=== PATIENT | male | born 1960 | race Caucasian/White ===

== ENCOUNTER 2019-02-22 16:28 | Emergency (ER) | payer SELFPAY ==
[2019-02-22 16:55] LABS: BASOPHILS % 0.5 % (0.0-1.5); NEUTROPHILS # 2.9 # k/uL (1.4-7.7)
--- NOTE | 2019-02-22 17:05 | ED Physician Documentation ---
Chest Pain - HISTORIAN Historian: patient - HPI Stated Complaint: "my chest pain is flaring up again" Chief Complaint: Chest Pain Additional Information: Patient presents to ED with a 45 minute history of left chest pain. Patient states he was riding in his friends car going home to the [place] when he began to have left sided chest pain, sharp, 9/10, radiating into left arm, left neck with associated shortness of breath. He has a cardiac history with 3 stents (2004, 2014). 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 He took 3 nitro and ASA 325mg just prior to arrival with no improvem ent in his chest pain. He asks if he can have pain meds. Onset: minutes (45) Timing: sudden onset Duration: sudden-onset Last known Well Date: 02/22/19 Last Known Well Time: 17:00 Context: other Severity: moderate Quality: sharp Chest Pain Radiation: arms (left ), neck Chest Pain Signs/Symptoms: denies: nausea, vomiting Worsened By: nothing Relieved By: nothing - ROS CONST: none MS/LYMPH: none GI/: denies: vomiting, nausea EYES/ENT: none SKIN/ENDO: none NEURO/PSYCH: denies: headache - PAST HX DE risk factors: cardiac disease DVT/PE Risk Factors: none TAD/AAA risk factors: none Neuro deficit: CVA GI disease: none Lung disease: none Surgeries/Procedures: cardiac cath, cardiac stent Allergies/Adverse Reactions: Allergies Allergy/AdvReac Type Severity Reaction Status Date / Time albuterol Allergy Verified 02/22/19 16:43 Home Medications: Ambulatory Orders Medication Instructions Recorded Clopidogrel Bisulfate [Clopidogrel] 1 tab PO DAILY 02/22/19 Metoprolol Succinate [[place]sp[place] 0.25 tab PO DAILY 02/22/19 Sprinkle] Nitroglycerin [Nitroquick] 1 tab SQ Q5 PRN 02/22/19 Pregabalin [Lyrica] 1 cap PO BID 02/22/19 Ranolazine [Ranexa] 1 tab PO BID 02/22/19 Rosuvastatin Calcium [Crestor] 1 tab PO HS 02/22/19 Tiotropium [place] [Spiriva] 1 cap INH DAILY 02/22/19 - SOCIAL HX Smoking History: cigarettes, greater than 1 pack/day Alcohol Use: none Drug Use: none - FAMILY HX Family HX: none - VITAL SIGNS Vital Signs: Vital Signs Temp Pulse Resp BP Pulse Ox 101 H 16 120/73 95 02/22/19 16:28 02/22/19 16:28 02/22/19 16:28 02/22/19 16:28 - REVIEWED ASSESSMENTS Nursing Assessment Reviewed: Yes Vitals Reviewed: Yes Progress - Progress Progress: 1819 Patient getting ready for discharge after negative second troponin. Patient was chest pain free at this time. Once patient was informed we did not provide Medicaid transport to his home in [facility]. He got extremely angry. He consulted us on how to get medicaid transport. When we were unable to arrange transport he stated he wanted to be transferred to another facility. He reported the return to his chest pain, and stated, "something is wrong". [address] Romero, hospitalist at [facility]. She accepts transfer. We will arrange transfer. 1934 Patient ambulating to nurses station asking for the WiFi password. He is not complaining of chest pain and is no apparent distress. 2052 EMS transporting patient to [facility]. - EKG/XRAY/CT Comments: 1636 NSR 99 bpm, NO ST elevation ED Results Lab/Radiology - Lab Results Lab Results: Lab Results 02/22/19 16:40 WBC 5.30 K/ul K/ul (4.00-12.00) RBC 3.78 M/ul L M/ul (3.90-5.20) Hgb 11.2 g/dL L g/dL (12.0-18.0) Hct 33.0 % L % (37.0-53.0) MCV 87.0 fl fl (80.0-100.0) MCH 29.7 pg pg (28.0-34.0) MCHC 34.0 g/dL g/dL (30.0-36.0) RDW 13.1 % % (11.3-14.3) Plt Count 250 K/mm3 K/mm3 (130-400) Neut % (Auto) 55.6 % % (39.0-79.0) Lymph % (Auto) 28.0 % % (16.0-50.0) [place] % (Auto) 10.2 % % (0.0-11.0) Eos % (Auto) 5.7 % % (0.0-6.8) Baso % (Auto) 0.5 % % (0.0-1.5) Neut # (Auto) 2.9 # k/uL # k/uL (1.4-7.7) Lymph # (Auto) 1.5 # k/uL # k/uL (0.6-4.0) [place] # (Auto) 0.5 # k/uL # k/uL (0.0-0.9) Eos # (Auto) 0.3 # k/uL # k/uL (0.0-0.6) Baso # (Auto) 0.0 # k/uL # k/uL (0.0-0.5) - Orders Orders: ED Orders Category Date Time Status Place IV Lock 1T Care 02/22/19 16:41 Active CHEST 1VIEW [RAD] Stat Exams 02/22/19 Ordered CBC/PLATELET/DIFF Routine Lab 02/22/19 16:40 Completed CMP Routine Lab 02/22/19 16:40 Received TROPONIN I Stat Lab 02/22/19 16:40 Received EKG WITH COMPARISON Stat Ther 02/22/19 Ordered Chest Pain Physical Exam - EXAM General Appearance: no acute distress, alert EENT: KOREY Neck: nml inspection, no carotid bruit Respiratory: no resp. distress, chest non-tender, nml breath sounds CVS: reg. rate & rhythm, no murmur Abdomen: soft, normal bowel sounds, non-tender Skin: warm/dry Extremities: non-tender Neuro: oriented X3, motor nml, mood/affect nml Discharge Clincal Impression: Chest pain Qualifiers: Chest pain type: precordial pain Qualified Code(s): R07.2 - Precordial pain Referrals: Primary Doctor,No [Primary Care Provider] - 2 Days Additional Instructions: 1. Follow up with your Loss Prevention Analyst as soon as possible 2. Resume all your home medications as previously prescribed. 3. Return to ER for new or worsening symptoms. Condition: Stable Disposition: 02 XFER SHT-TRM HOSP Decision to Admit: NO Date of Decison to Admit: 02/22/19 Decision Time: 19:33
[2019-02-22 17:16] LABS: eGFR (Non-African) > 60
[2019-02-22] MEDS ORDERED: fentaNYL CITRATE/PF 100 MCG/2 ML INJ. IV ONE ×2 (17:16→18:32)
[2019-02-22 21:01] VITALS: BP 131/82
--- NOTE | 2019-02-23 05:41 | Diagnostic Imaging Report ---
GRICELDA SHELTON [facility] [id number] [facility] [address] [place], [place]. [address] Report Submission Date: Feb 22, 2019 5:23:09 PM CDT Patient Study Name: LORNA ESTRADA Date: Feb 22, 2019 4:44:35 PM CDT Modality Type: DX Gender: M Description: CHEST 1VIEW : 58 Institution: [facility] Physician: GRICELDA SHELTON Portable chest History: Chest pain Portable chest dated February 22, 2019 demonstrates a single lead pacing device. Heart size is within normal limits. Pulmonary vascularity is normal. Lungs are clear. Impression: Single lead pacing device. No active disease. Electronically signed on Feb 22, 2019 5:23:09 PM CDT by: Sudha BECKER
== END 2019-02-22 20:55 | disposition short-term general hospital (02) ==
LOC: ED 16:28
DX: R07.2 Precordial pain (principal)
CPT/HCPCS: 71045; 80053; 84484; 85025; 96372; 99283; 99284; J3010; S1016